=== PATIENT | male | born 1995 | race Caucasian/White ===

== ENCOUNTER 2017-10-24 16:50 | Emergency (ER) | payer OTHER ==
[2017-10-24] MEDS ORDERED: Ibuprofen TAB* 800 MG PO ONE (19:48)
[2017-10-24] MEDS ORDERED: Albuterol/Ipratropium NEB.SOL* Albuterol 2.5 MG/Ipratropium 0.5 MG 3 ML INH ONE (19:48)
--- NOTE | 2017-10-24 20:17 | RAD ---
INDICATION: Cough COMPARISON: None TECHNIQUE: An AP image taken at 2009 hours is submitted. FINDINGS: Bones/Soft Tissues: There are no acute bony findings. Cardiomediastinal: The cardiomediastinal silhouette is normal. Lungs: There are no infiltrates. Pleura: There are no pleural effusions. Other: None IMPRESSION: NO ACTIVE DISEASE.
--- NOTE | 2017-10-24 20:34 | ED ---
Brandi Serrano Gabriel, scribed for Neto Cali MD on 10/24/17 at 1942 . Respiratory - HPI Summary HPI Summary: This patient is a 22 year old M presenting to [facility] with a chief complaint of a respiratory complaint since 10-20-17. The patient rates the pain 4/10 in severity. Patient reports CANDELARIA, chest tightness, cough, and a fever that resolved. Pt has been taking albuterol for the past two days without relief. Pt just recently returned from [place]. - History of Current Complaint Chief Complaint: EDUpperRespComplaint Stated Complaint: SOB/COUGH Time Seen by Provider: 10/24/17 19:21 Hx Obtained From: Patient Onset/Duration: Lasting Hours, Still Present Initial Severity: Mild Current Severity: Moderate Pain Intensity: 4 Character: Cough (Nonproductive) Sputum Amount: None Associated Signs and Symptoms: Fever - had one five days ago, Chest Pain PMH/Surg Hx/FS Hx/Imm Hx Endocrine/Hematology History: Denies: Hx Anticoagulant Therapy Cardiovascular History: Denies: Hx Aneurysm Respiratory History: Reports: Hx Asthma EENT History: Denies: Hx Deafness Neurological History: Denies: Hx CVA, Hx Dementia, Hx Developmental Delay Infectious Disease History: No Infectious Disease History: Reports: Traveled Outside the [place] in Last 30 Days - flew back from [place] 10/14 - Family History Known Family History: Negative: Cardiac Disease, Hypertension, Diabetes, Renal Disease, Respiratory Disease, Seizure Disorder, Blood Disorder - Social History Alcohol Use: Weekly Alcohol Amount: weekends only Substance Use Type: Reports: None Smoking Status (MU): Current Some Day Smoker Review of Systems Positive: Fever Positive: Chest Pain Positive: Cough, Other - CANDELARIA All Other Systems Reviewed And Are Negative: Yes Physical Exam - Summary Physical Exam Summary: VITAL SIGNS: Reviewed. GENERAL: Patient is a well-developed and nourished malewho is lying comfortable in the stretcher. Patient is not in any acute respiratory distress. HEAD AND FACE: No signs of trauma. No ecchymosis, hematomas or skull depressions. No sinus tenderness. EYES: PERRLA, EOMI x 2, No injected conjunctiva, no nystagmus. EARS: Hearing grossly intact. Ear canals and tympanic membranes are within normal limits. MOUTH: Oropharynx within normal limits. NECK: Supple, trachea is midline, no adenopathy, no JVD, no carotid bruit, no c- spine tenderness, neck with full ROM. CHEST: Symmetric, no tenderness at palpation LUNGS: Clear to auscultation bilaterally. No wheezing or crackles. CVS: Regular rate and rhythm, S1 and S2 present, no murmurs or gallops appreciated. ABDOMEN: Soft, non-tender. No signs of distention. No rebound no guarding, and no masses palpated. Bowel sounds are normal. EXTREMITIES: FROM in all major joints, no edema, no cyanosis or clubbing. NEURO: Alert and oriented x 3. No acute neurological deficits. Speech is normal and follows commands. SKIN: Dry and warm Triage Information Reviewed: Yes Vital Signs On Initial Exam: Initial Vitals Temp Pulse Resp BP Pulse Ox 99.0 F 91 18 147/81 99 10/24/17 17:07 10/24/17 17:07 10/24/17 17:07 10/24/17 17:07 10/24/17 17:07 Vital Signs Reviewed: Yes Diagnostics - Vital Signs Vital Signs Temp Pulse Resp BP Pulse Ox 10/24/17 17:07 99.0 F 91 18 147/81 99 - Laboratory Lab Statement: Any lab studies that have been ordered have been reviewed, and results considered in the medical decision making process. - Radiology CXR Radiology Interpretation Completed By: Radiologist - no active disease ED physician has reviewed this radiology report. Disposition - Course Course Of Treatment: This patient is a 22 year old M presenting to [facility] with a chief complaint of a respiratory complaint since 10-20-17. The patient rates the pain 4/10 in severity. Patient reports CANDELARIA, chest tightness, cough, and a fever that resolved. Pt has been taking albuterol for the past two days without relief. Pt was negative for influenza A and B. CXR reveals, per radiologist, no active disease. In the ED course the patient was given duoneb and Motrin. Patient will be discharged with prescription for Motrin and follow up from [facility]. The patient is agreeable with this plan. - Diagnoses Provider Diagnoses: Viral syndrome Discharge - Discharge Plan Condition: Stable Disposition: HOME Patient Education Materials: Viral Syndrome (ED) Referrals: [facility] - [place] SOTO [Primary Care Provider] - 3 Days Additional Instructions: RETURN TO EMERGENCY DEPARTMENT FOR ANY NEW OR WORSENING SYMPTOMS The documentation as recorded by the scribBrandi astorga Gabriel accurately reflects the service I personally performed and the decisions made by me, Neto Cali MD.
[2017-10-24 21:17] VITALS: BP 137/84
== END 2017-10-24 21:15 | disposition home or self-care (01) ==
LOC: ED 16:50
DX: B34.9 Viral infection, unspecified (principal); R50.9 Fever, unspecified; R07.9 Chest pain, unspecified; Z72.0 Tobacco use
CPT/HCPCS: 71045; 87502; 94640; 99282; A9270-GY

== ENCOUNTER 2017-12-20 12:29 | Emergency (ER) | payer OTHER ==
[2017-12-20] MEDS ORDERED: NS 0.9% 1000 ML* 1,000 ML IV ONE (15:29)
[2017-12-20] MEDS ORDERED: PROCHLORPERAZINE INJ 5 MG/ML 2 ML VIAL IV ONE (15:29)
[2017-12-20] MEDS ORDERED: diPHENhydraMINE IV* 50 MG/ML 1 ml VIAL (BENADRYL) SLOW PUSH ONE (15:29)
[2017-12-20 16:15] LABS: ABS Basophils 0 10^3/ul (0-0.2); ABS Eosinophils 0 10^3/ul (0-0.6); ABS Lymphocytes 2.7 10^3/ul (1.0-4.8); ABS Monocytes 0.3 10^3/ul (0-0.8); ABS Neutrophils 2.6 10^3/ul (1.5-7.7); ABS Nucleated RBC 0 10^3/ul; Eosinophil % 0.5 % (0-6); Hematocrit 49 % (42-52); Hemoglobin 16.9 g/dl (14.0-18.0); Lymphocyte % 46.5 % (25-47); Mean Corpuscular HGB Conc 34 g/dl (31-36); Mean Corpuscular Hemoglobin 33 pg (27-31); Mean Corpuscular Volume 95 fL (80-94); Nucleated Red Blood Cells % 0.1; Platelet Count 226 10^3/ul (150-450); Red Cell Distribution Width 12 % (10.5-15); White Blood Count 5.7 10^3/ul (3.5-10.8)
--- NOTE | 2017-12-20 16:33 | RAD ---
Indication: LEFT side chest pain, headache, LEFT arm pain. Comparison: October 24, 2017 Technique: Dual energy PA chest. Report: Clear lungs and pleural spaces. Negative for pneumothorax. The heart, pulmonary vasculature, and mediastinal contours are unremarkable. Unremarkable osseous structures and soft tissue contours. IMPRESSION: No evidence for acute intrathoracic disease.
[2017-12-20 16:36] LABS: EGFR Non-African American 92.9 (>60)
--- NOTE | 2017-12-20 16:53 | RAD ---
Indication: Headaches, left chest and arm pain. CT of the brain was performed without IV contrast. Ventricular structures are midline. No midline shift is noted. The extra-axial spaces are unremarkable. There is no evidence of intracranial mass or hemorrhage. No other high or low density lesions are identified. Mastoid air cells and paranasal sinuses are unremarkable. IMPRESSION: There is no evidence of intracranial mass or hemorrhage.
[2017-12-20 18:01] LABS: Urine Appearance Clear; Urine Blood Negative (Negative); Urine Color Straw; Urine Ketones Trace (Negative); Urine Protein Negative (Negative); Urine Specific Gravity 1.006 (1.010-1.030); Urine Urobilinogen Negative (Negative)
[2017-12-20 19:15] VITALS: BP 115/66
--- NOTE | 2018-01-05 07:17 | ED ---
Headache - HPI Summary HPI Summary: Patient here with migrainous type symptoms 3 days w/o h/o migraines. Was seen at [facility] prior to arrival. Reports this started as a headache on the left side of his head and face. Pain has progressed over the past 3 days from his head and face into his Lt neck, shoulder and upper. Associated symptoms include intermittent dizziness, nausea, lightheadedness. Denies numbness, tingling, weakness, slurred speech, issues with memory, fever, chills, vomiting , diarrhea, URI symptoms, skin changes, change in vision, tinnitus, neck stiffness. Has tried ibuprofen without relief. Although it is closing in on the end of the semester, he reports no new stress. No injury to head or neck. Immunizations are up-to-date. No personal or family history of neurologic pathology nor contact with others that are sick or have similar symptoms at this time. - History Of Current Complaint Chief Complaint: EDHeadache Stated Complaint: HEADACHE,ABD PAIN Time Seen by Provider: 12/20/17 15:24 Hx Obtained From: Patient - Allergies/Home Medications Allergies/Adverse Reactions: Allergies Allergy/AdvReac Type Severity Reaction Status Date / Time morphine Allergy Nausea And Verified 12/20/17 12:33 Vomiting Home Medications: Home Medications Ibuprofen TAB* [Motrin TAB* 800 MG] 400 mg PO Q6H PRN 12/20/17 [History Confirmed 12/20/17] PMH/Surg Hx/FS Hx/Imm Hx Previously Healthy: Yes Endocrine/Hematology History: Denies: Hx Anticoagulant Therapy, Hx Coagulopothy, Autoimmune Disease Cardiovascular History: Denies: Hx Aneurysm, Hx Congenital Heart Disease, Hx Deep Vein Thrombosis, Hx Hypertension Respiratory History: Reports: Hx Asthma Musculoskeletal History: Denies: Hx Orthopedic Injury Sensory History: Denies: Hx Deafness Neurological History: Denies: Hx CVA, Hx Dementia, Hx Developmental Delay - Surgical History Surgery Procedure, Year, and Place: LEFT TESTICLE - Immunization History Immunizations Up to Date: Yes Infectious Disease History: No Infectious Disease History: Denies: Traveled Outside the [place] in Last 30 Days - Family History Known Family History: Negative: Cardiac Disease, Hypertension, Diabetes, Renal Disease, Respiratory Disease, Seizure Disorder, Blood Disorder - Social History Occupation: Student Alcohol Use: Weekly Alcohol Amount: weekends only Hx Substance Use: No Substance Use Type: Reports: None Hx Tobacco Use: No Smoking Status (MU): Never Smoked Tobacco Review of Systems Constitutional: Negative Eyes: Negative ENT: Negative Positive: Chest Pain Respiratory: Negative Positive: Nausea Positive: no symptoms reported Negative: Decreased ROM, Edema Skin: Negative Positive: Headache. Negative: Weakness, Paresthesia, Numbness, Syncope, Slurred Speech Psychological: Normal All Other Systems Reviewed And Are Negative: Yes Physical Exam Triage Information Reviewed: Yes Vital Signs On Initial Exam: Initial Vitals Temp Pulse Resp BP Pulse Ox 97.4 F 80 16 134/89 100 12/20/17 12:33 12/20/17 12:33 12/20/17 12:33 12/20/17 12:33 12/20/17 12:33 Vital Signs Reviewed: Yes Appearance: Positive: Well-Appearing, No Pain Distress, Well-Nourished Skin: Positive: Warm, Skin Color Reflects Adequate Perfusion, Dry - no skin changes over effected area Head/Face: Positive: Normal Head/Face Inspection - NTTP Eyes: Positive: Normal, EOMI, BIJAN - No photophobia, Conjunctiva Clear. Negative: Conjunctiva Inflammed, Discharge ENT: Positive: Normal ENT inspection, Hearing grossly normal, Pharynx normal, TMs normal, Uvula midline. Negative: Nasal congestion, Nasal drainage, Tonsillar swelling, Tonsillar exudate, Trismus, Muffled voice, Hoarse voice, Sinus tenderness Dental: Negative: Abscess @ Neck: Positive: Supple, Nontender, No Lymphadenopathy Respiratory/Lung Sounds: Positive: Clear to Auscultation, Breath Sounds Present Cardiovascular: Positive: Normal, RRR, S1, S2 Abdomen Description: Positive: Nontender, No Organomegaly, Soft Bowel Sounds: Positive: Present Musculoskeletal: Positive: Normal, Strength/ROM Intact Neurological: Positive: Normal, Sensory/Motor Intact, Alert, Oriented to Person Place, Time, CN Intact II-III, Normal Gait, Heel to Toe, Finger to Nose, Facial Symmetry, Speech Normal. Negative: Pronator Drift Present Psychiatric: Positive: Normal Diagnostics - Vital Signs Vital Signs Temp Pulse Resp BP Pulse Ox 12/20/17 19:15 98.3 F 68 22 115/66 100 12/20/17 16:47 100 12/20/17 16:46 62 14 124/67 100 12/20/17 15:05 51 12 120/72 100 12/20/17 12:33 97.4 F 80 16 134/89 100 - Laboratory Lab Results: Lab Results 12/20/17 12/20/17 12/20/17 Range/Units 16:05 16:05 16:05 WBC 5.7 (3.5-10.8) 10^3/ul RBC 5.20 (4.0-5.4) 10^6/ul Hgb 16.9 (14.0-18.0) g/dl Hct 49 (42-52) % MCV 95 H (80-94) fL MCH 33 H (27-31) pg MCHC 34 (31-36) g/dl RDW 12 (10.5-15) % Plt Count 226 (150-450) 10^3/ul MPV 8.0 (7.4-10.4) um3 Neut % (Auto) 46.4 (38-83) % Lymph % (Auto) 46.5 (25-47) % [place] % (Auto) 5.9 (0-7) % Eos % (Auto) 0.5 (0-6) % Baso % (Auto) 0.7 (0-2) % Absolute Neuts (auto) 2.6 (1.5-7.7) 10^3/ul Absolute Lymphs (auto) 2.7 (1.0-4.8) 10^3/ul Absolute Monos (auto) 0.3 (0-0.8) 10^3/ul Absolute Eos (auto) 0 (0-0.6) 10^3/ul Absolute Basos (auto) 0 (0-0.2) 10^3/ul Absolute Nucleated RBC 0 10^3/ul Nucleated RBC % 0.1 D-Dimer, Quantitative < 200 (Less Than 230) ng/mL Sodium 138 L (139-145) mmol/L Potassium 4.1 (3.5-5.0) mmol/L Chloride 102 (101-111) mmol/L Carbon Dioxide 24 (22-32) mmol/L Anion Gap 12 H (2-11) mmol/L BUN 13 (6-24) mg/dL Creatinine 0.99 (0.67-1.17) mg/dL Est GFR ( Amer) 119.4 (>60) Est GFR (Non-Af Amer) 92.9 (>60) BUN/Creatinine Ratio 13.1 (8-20) Glucose 84 (70-100) mg/dL Lactic Acid (0.5-2.0) mmol/L Calcium 9.8 (8.6-10.3) mg/dL Magnesium 2.3 (1.9-2.7) mg/dL Total Bilirubin 0.90 (0.2-1.0) mg/dL AST 17 (13-39) U/L ALT 11 (7-52) U/L Alkaline Phosphatase 57 (34-104) U/L Troponin I 0.00 (<0.04) ng/mL Total Protein 8.1 (6.4-8.9) g/dL Albumin 4.9 (3.2-5.2) g/dL Globulin 3.2 (2-4) g/dL Albumin/Globulin Ratio 1.5 (1-3) TSH 1.52 (0.34-5.60) mcIU/mL Urine Color Urine Appearance Urine pH (5-9) Ur Specific [place] (1.010-1.030) Urine Protein (Negative) Urine Ketones (Negative) Urine Blood (Negative) Urine Nitrate (Negative) Urine Bilirubin (Negative) Urine Urobilinogen (Negative) Ur Leukocyte Esterase (Negative) Urine Glucose (Negative) 12/20/17 12/20/17 Range/Units 16:05 16:25 WBC (3.5-10.8) 10^3/ul RBC (4.0-5.4) 10^6/ul Hgb (14.0-18.0) g/dl Hct (42-52) % MCV (80-94) fL MCH (27-31) pg MCHC (31-36) g/dl RDW (10.5-15) % Plt Count (150-450) 10^3/ul MPV (7.4-10.4) um3 Neut % (Auto) (38-83) % Lymph % (Auto) (25-47) % [place] % (Auto) (0-7) % Eos % (Auto) (0-6) % Baso % (Auto) (0-2) % Absolute Neuts (auto) (1.5-7.7) 10^3/ul Absolute Lymphs (auto) (1.0-4.8) 10^3/ul Absolute Monos (auto) (0-0.8) 10^3/ul Absolute Eos (auto) (0-0.6) 10^3/ul Absolute Basos (auto) (0-0.2) 10^3/ul Absolute Nucleated RBC 10^3/ul Nucleated RBC % D-Dimer, Quantitative (Less Than 230) ng/mL Sodium (139-145) mmol/L Potassium (3.5-5.0) mmol/L Chloride (101-111) mmol/L Carbon Dioxide (22-32) mmol/L Anion Gap (2-11) mmol/L BUN (6-24) mg/dL Creatinine (0.67-1.17) mg/dL Est GFR ( Amer) (>60) Est GFR (Non-Af Amer) (>60) BUN/Creatinine Ratio (8-20) Glucose (70-100) mg/dL Lactic Acid 1.8 (0.5-2.0) mmol/L Calcium (8.6-10.3) mg/dL Magnesium (1.9-2.7) mg/dL Total Bilirubin (0.2-1.0) mg/dL AST (13-39) U/L ALT (7-52) U/L Alkaline Phosphatase (34-104) U/L Troponin I (<0.04) ng/mL Total Protein (6.4-8.9) g/dL Albumin (3.2-5.2) g/dL Globulin (2-4) g/dL Albumin/Globulin Ratio (1-3) TSH (0.34-5.60) mcIU/mL Urine Color Straw Urine Appearance Clear Urine pH 6.0 (5-9) Ur Specific [place] 1.006 L (1.010-1.030) Urine Protein Negative (Negative) Urine Ketones Trace A (Negative) Urine Blood Negative (Negative) Urine Nitrate Negative (Negative) Urine Bilirubin Negative (Negative) Urine Urobilinogen Negative (Negative) Ur Leukocyte Esterase Negative (Negative) Urine Glucose Negative (Negative) Result Diagrams: 12/20/17 16:05 12/20/17 16:05 Lab Statement: Any lab studies that have been ordered have been reviewed, and results considered in the medical decision making process. Re-Evaluation - Re-Evaluation First Eval Change: Improved - all sx resolved Headache Course/Dx - Course Course Of Treatment: Pt presents w/ Lt side HERNÁNDEZ, facial/chest and shoulder pain that progressed over 3 days. Ruled out cardiopulm and neuro pathology with labs (no acute findings), ECG (NSR, 62 bpm, no ST elevations - early replorization), CT brain (no acute findings), CXR (no acute findings). Sx resolved w/ migraine cocktail. D/c'd and advised to f/u w/ PCP - return to ED if danger s/sx present. - Diagnoses Provider Diagnoses: Migraine headache Discharge - Sign-Out/Discharge Documenting (check all that apply): Discharge/Admit/Transfer - Discharge Plan Condition: Stable Disposition: HOME Patient Education Materials: Migraine Headache (ED) Forms: *School Release Referrals: [facility] - [place] SOTO [Primary Care Provider] - Lola Headley MD [Medical Doctor] - Additional Instructions: Your symptoms of Left sided headache, neck pain, shoulder pain and chest pain were relieved with 1 L of normal saline, Compazine and Benadryl through an IV. With all of your other studies here returning negative for brain/cardiac/ pulmonary and vascular pathology, it is suspected you experienced a complex migraine today. It is important that you monitor your lifestyle habits including but not limited to sleep, nutrition and stress reduction. Follow up with neurology in the next 1-2 weeks for further assessment of your symptoms in the event that additional testing or treatment needs to be provided. If in the meantime you develop return of symptoms, you may first try 800 mg of ibuprofen with food and resting in a dark, quiet place with rehydration by drinking plenty of water. If your headache persists or you develop other symptoms again , return to the emergency department. *If you develop numbness, tingling, weakness, facial drooping, slurred speech, lethargy, syncope, change in vision, vomiting, chest pain, or shortness of breath return to the emergency department. - Billing Disposition and Condition Condition: STABLE Disposition: HOME
== END 2017-12-20 19:15 | disposition home or self-care (01) ==
LOC: ED 12:29
DX: G43.909 Migraine, unspecified, not intractable, without status migrainosus (principal); R07.9 Chest pain, unspecified; R11.0 Nausea
CPT/HCPCS: 36415; 70450; 71045; 80053; 81003; 83605; 83735; 84443; 84484; 85025; 85379; 93005; 96374; 99283; J0780; J1200